=== PATIENT | female | born 1990 | race Two or more races ===

== ENCOUNTER 2018-12-11 05:57 | Emergency (ER) | payer BC, OTHER ==
[~2018-12-11] VITALS: Ht 172.7 cm; Wt 145.1 kg
[2018-12-11 06:48] LABS: Basophils # (auto) 0.1 uL; Basophils % (auto) 0.9 % (0.0-2.0); Eosinophils # (auto) 0.2 uL; Eosinophils % (auto) 1.5 % (0.0-7.0); Hematocrit 45.7 % (36.0-46.0); Hemoglobin 15.3 g/dL (12.2-16.2); Lymphocytes % (auto) 26.4 % (10.0-50.0); Mean Corpuscular Hemoglobin 30.1 pg (28.0-32.0); Mean Corpuscular Hgb Conc. 33.6 g/dL (32.0-36.0); Mean Corpuscular Volume 89.6 fL (80.0-100.0); Monocytes # (auto) 0.5 uL; Monocytes % (auto) 4.4 % (0.0-12.0); Neutrophils # (auto) 7.7 uL; Neutrophils % (auto) 66.8 % (37.0-80.0); Platelet Count (auto) 243 10^3/uL (140-450); Red Cell Distribution Width 12.8 % (11.8-14.3); White Blood Cell 11.5 10^3/uL (4.4-10.8)
[2018-12-11] MEDS ORDERED: ASPirin 81 mg TAB PO ONE (07:00)
[2018-12-11 07:05] LABS: Alanine Aminotransferase 30 U/L (13-56); Albumin 3.7 g/dL (3.4-5.0); Anion Gap 6 (5-15); Aspartate Aminotransferase 12 U/L (15-37); BUN/Creatinine Ratio 20.5; Blood Urea Nitrogen 18 mg/dL (7-18); Carbon Dioxide 25 mmol/L (21-32); Chloride 107 mmol/L (98-107); GFR African American 100 mL/min; GFR Non-African American 83 mL/min; Glucose 98 mg/dL (74-106); Sodium 138 mmol/L (136-145)
[2018-12-11 07:09] LABS: Alkaline Phosphatase 109 U/L (45-117); Bilirubin, Total 0.3 mg/dL (0.2-1.0); Total Protein 7.1 g/dL (6.4-8.2)
[2018-12-11 09:41] VITALS: BP 124/70
== END 2018-12-11 09:50 | disposition home or self-care (01) ==
LOC: ER 06:04
DX: F41.9 Anxiety disorder, unspecified (principal); F17.290 Nicotine dependence, other tobacco product, uncomplicated; F12.10 Cannabis abuse, uncomplicated
CPT/HCPCS: 36415; 80053; 84484; 85025; 93005

== ENCOUNTER 2019-06-28 09:56 | Emergency (ER) | payer BC ==
[~2019-06-28] VITALS: Ht 172.7 cm; Wt 121.2 kg
[2019-06-28 10:02] VITALS: BP 124/82
[2019-06-28] MEDS ORDERED: diphenhdrAMINE HCL 50 MG/1 ML VL IM ONE (10:45)
[2019-06-28] MEDS ORDERED: PROMETHAZINE HCL 25 MG/ML 1ML IM ONE (10:45)
== END 2019-06-28 11:15 | disposition home or self-care (01) ==
LOC: ER 09:56
DX: F41.9 Anxiety disorder, unspecified (principal); T43.595A Adverse effect of other antipsychotics and neuroleptics, initial encounter; Y92.9 Unspecified place or not applicable
CPT/HCPCS: 96372; 99284; J1200; J2550

== ENCOUNTER 2019-10-08 13:22 | Emergency (ER) | payer BC ==
[~2019-10-08] VITALS: Ht 170.2 cm; Wt 120.2 kg
[2019-10-08 14:52] VITALS: BP 121/85
== END 2019-10-08 15:15 | disposition home or self-care (01) ==
LOC: ER 13:22
DX: F41.0 Panic disorder [episodic paroxysmal anxiety] (principal); J45.909 Unspecified asthma, uncomplicated